=== PATIENT | male | born 1970 | race Caucasian/White ===

== ENCOUNTER 2019-11-15 01:32 | Day surgery (SDC) | payer OTHER, SELFPAY ==
[2019-11-09 14:40] VITALS: BMI 25.8
[2019-11-15 07:37] VITALS: BMI 24.9
[2019-11-15 07:41] VITALS: BP 119/77; PULSE 80; RESP 18; TEMP 36.1; O2SAT 100
[2019-11-15] MEDS: LACTATED RINGERS 1,000 ML 150 ML IV CONT (07:50)
--- NOTE | 2019-11-15 07:53 | WPDANESEPPF ---
Anes - Initial Pre Proc Eval Procedure: Operation Date: 11/15/19 08:30 Proposed Procedures p Screening Colonoscopy - Greg Obrien MD Date/Time: 11/15/19 07:53 Surgeon: Greg Obrien MD Pre Op Diagnosis: Neoplasm Screening Patient Data Age: 49 Gender: M Height: 5 ft 11 in Weight: 81.1 kg Last Vital Signs Temp 36.1 C L 11/15/19 07:41 Pulse 80 11/15/19 07:41 Resp 18 11/15/19 07:41 BP 119/77 11/15/19 07:41 Pulse Ox 100 11/15/19 07:41 Allergies Allergy/AdvReac Type Severity Reaction Status Date / Time No Known Allergies Allergy Unverified 11/15/19 07:35 Home Medications Medication Instructions Recorded Confirmed Type aripiprazole 15 mg tablet 15 mg PO DAILY 10/12/19 11/09/19 History cholecalciferol (vitamin D3) 1,250 50,000 unit PO WEEKLY #8 cap 10/12/19 11/09/19 Rx mcg (50,000 unit) capsule fluoxetine 10 mg capsule 10 mg PO DAILY 10/12/19 11/09/19 History Patient hx anesthesia problems: none Family hx anesthesia problems: none PMFSH Past Medical History Medical History Depression Gout Surgical History Surgical History H/O eye surgery lower eye orbital 2004 H/O hernia repair Family History Family History Grandparent H/O aortic valve replacement H/O aneurysm Malignant neoplasm of prostate Diabetes mellitus Social History Social History Smoking packs per day: 0.5 Smoking cigarettes per day: 10.0 Smoking status: Former smoker Tobacco type: cigarettes Alcohol intake: current Anes - Eval Final PreProcedure Day of Procedure 11/15/19 07:53 Patient weight: normal Heart: regular rate and rhythm Lungs: clear to auscultation Airway: Mallampati scale class II Neurological: alert and oriented Last oral intake: >/= 8 hours ASA classification: II Emergent: no Anesthetic plan: proceed Anesthesia type and monitoring: general GIVS and standard monitoring Informed Consent: The patient's anesthetic plan and its attendant risks and benefits were discussed with the patient/family/POA. Questions were solicited and answers provided to the satisfaction of the patient/family/POA.
--- NOTE | 2019-11-15 08:00 | P.HP_ITS ---
History of Present Illness History of Present Illness Consent: Risks, benefits, and alternatives have been discussed and questions answered. Patient agrees to proceed with procedure. Chief complaint: Neoplasm Screening Narrative: Loco Son is a 49 year old W male referred for his 1st screening colonoscopy. Patient is asymptomatic and there is no family history of colon polyps or colon cancer. [facility] Past Medical History Medical History Depression Gout Surgical History Surgical History H/O eye surgery lower eye orbital 2004 H/O hernia repair Family History Family History Grandparent H/O aortic valve replacement H/O aneurysm Malignant neoplasm of prostate Diabetes mellitus Social History Social History Smoking packs per day: 0.5 Smoking cigarettes per day: 10.0 Smoking status: Former smoker Tobacco type: cigarettes Alcohol intake: current Meds Home Medications and Allergies Home Medications Medication Instructions Recorded Confirmed Type aripiprazole 15 mg tablet 15 mg PO DAILY 10/12/19 11/09/19 History cholecalciferol (vitamin D3) 1,250 50,000 unit PO WEEKLY #8 cap 10/12/19 11/09/19 Rx mcg (50,000 unit) capsule fluoxetine 10 mg capsule 10 mg PO DAILY 10/12/19 11/09/19 History Allergies Allergy/AdvReac Type Severity Reaction Status Date / Time No Known Allergies Allergy Unverified 11/15/19 07:35 Vital Signs Vital Signs - 24 hr 11/15/19 07:41 Temperature 36.1 C L Pulse Rate 80 Respiratory Rate 18 Blood Pressure 119/77 Pulse Oximetry 100 Exam Const: Orientation/consciousness: patient oriented x3 Resp: Auscultation: clear to auscultation bilaterally Cardio: Rate: regular rate Rhythm: regular rhythm Heart sounds: no murmurs GI: GI Palp: Yes Soft to palpation, No Tenderness to palpation present (GI), Yes No hepatosplenomegaly present and No Palpable mass present Auscultation: normal bowel sounds Neuro: General: patient oriented x3 and no focal motor deficits Extrem: General: no pedal edema Assessment and Plan Additional Plan Screening colonoscopy in average risk patient
[2019-11-15 08:56] VITALS: BP 85/52; PULSE 79; RESP 20; O2SAT 93
[2019-11-15 09:06] VITALS: BP 89/49; PULSE 73; RESP 16; O2SAT 99
[2019-11-15 09:16] VITALS: BP 90/59; PULSE 64; RESP 17; O2SAT 100
[2019-11-15 09:26] VITALS: BP 99/58; PULSE 65; RESP 20; O2SAT 100
== END 2019-11-15 09:39 | disposition home or self-care (01) ==
PROVIDERS: PCP Internal Medicine; Visit Provider Internal Medicine Gastroenterology
PROC: 0DJD8ZZ Inspection of Lower Intestinal Tract, Via Natural or Artificial Opening Endoscopic (ICD-10-PCS; CPT 45378; principal; 2019-11-15 08:30)
DX: Z12.11 Encounter for screening for malignant neoplasm of colon (principal); K51.40 Inflammatory polyps of colon without complications; K57.30 Diverticulosis of large intestine without perforation or abscess without bleeding; M10.9 Gout, unspecified; F32.9 Major depressive disorder, single episode, unspecified; Z87.891 Personal history of nicotine dependence
CPT/HCPCS: 45385; 88305; J2704; J7120

== ENCOUNTER 2021-01-03 17:22 | Outpatient (CLI) | payer OTHER, SELFPAY | END 2021-01-03 17:23 | disposition home or self-care (01) | LOC: ANHCOVIDVC 17:22 | PROVIDERS: PCP Internal Medicine | DX: Z23 Encounter for immunization (principal) | CPT/HCPCS: 0001A; 91300 ==

== ENCOUNTER 2021-01-24 17:16 | Outpatient (CLI) | payer OTHER, SELFPAY | END 2021-01-24 17:17 | disposition home or self-care (01) | LOC: ANHCOVIDVC 17:16 | PROVIDERS: PCP Internal Medicine | DX: Z23 Encounter for immunization (principal) | CPT/HCPCS: 0002A; 91300 ==

== ENCOUNTER 2023-11-27 09:35 | Outpatient (CLI) | payer OTHER, SELFPAY ==
[2023-11-27 19:26] LABS: Alanine Aminotransferase 21 U/L (6-50); Albumin Level 4.4 g/dL (3.5-5.1); Alkaline Phosphatase 66 U/L (38-126); Anion Gap 7 mmol/L (8-16); Aspartate Amino Transferase 25 U/L (17-59); Bilirubin,Total 0.7 mg/dL (0.2-1.3); Blood Urea Nitrogen 15 mg/dL (9-20); Calcium 9.3 mg/dL (8.4-10.2); Carbon Dioxide 31 mmol/L (22-30); Chloride 101 mmol/L (98-107); Cholesterol 227 mg/dL (0-200); Estimated Glomerular Filt Rate > 60; Glucose 108 mg/dL (65-110); HDL Direct 53 mg/dL; Potassium 4.6 mmol/L (3.4-5.0); Sodium 139 mmol/L (137-145); Triglycerides 123 mg/dL (<150)
[2023-11-27 19:37] LABS: LDL Cholesterol Direct 134 mg/dL
[2023-11-27 19:39] LABS: Basophils Absolute Auto 0.1 K/mm3 (0.0-0.1); Eosinophils Absolute Auto 0.1 K/mm3 (0-0.3); Eosinophils Percent Auto 0.9 % (0-4.4); Hematocrit 45.2 % (42.0-52.0); Hemoglobin 14.9 g/dL (14.0-18.0); Immature Granulocyte Absolute 0.01 K/mm3 (0.00-0.031); Immature Granulocyte Percent A 0.1 % (0-0.5); Lymphocytes Absolute Auto 2.23 K/mm3 (0.9-3.2); Lymphocytes Percent Auto 32.6 % (18.3-44.2); Mean Corpuscular Hemoglobin 30.5 pg (26-34); Mean Corpuscular Volume 92.4 fl (80-100); Mean Platelet Volume 10.1 fl (7.4-10.4); Monocytes Absolute Auto 0.7 K/mm3 (0.1-0.6); Monocytes Percent Auto 10.7 % (2.6-8.5); Neutrophils Absolute Auto 3.8 K/mm3 (1.3-6.7); Neutrophils Percent Auto 54.7 % (45.5-73.1); Platelet Count Result 276 k/mm3 (150-375); Red Blood Count 4.89 M/mm3 (4.6-6.20); Red Cell Distribution Width 12.2 % (11.5-14.5); White Blood Count 6.9 K/mm3 (4.5-10.0)
[2023-11-27 20:14] LABS: Prostate Specific Antigen 0.9 ng/mL (< OR = 4.0); Thyroid Stimulating Hormone < 0.015 uIU/mL (0.465-4.680)
[2023-11-27 20:30] LABS: Vitamin D 25 Hydroxy 72.1 ng/mL
[2023-11-27 22:21] LABS: Hemoglobin A1C 5.5 % (<5.7)
== END 2023-11-27 09:36 | disposition home or self-care (01) ==
LOC: ANHGOSHLAB 09:37
PROVIDERS: PCP Internal Medicine; Visit Provider Clinical Nurse Specialist
DX: Z13.228 Encounter for screening for other metabolic disorders (principal); Z13.220 Encounter for screening for lipoid disorders; K21.9 Gastro-esophageal reflux disease without esophagitis; E55.9 Vitamin D deficiency, unspecified; Z80.42 Family history of malignant neoplasm of prostate; R73.9 Hyperglycemia, unspecified
CPT/HCPCS: 36415; 80053; 80061; 82306; 83036; 84153; 84443; 85025; G0103

== ENCOUNTER 2023-11-28 14:22 | Outpatient (CLI) | payer OTHER, SELFPAY ==
[2023-11-28 16:51] LABS: Free T4 Free Thyroxine 0.91 ng/mL (0.78-2.19)
[2023-11-28 17:03] LABS: Thyroid Stimulating Hormone < 0.015 uIU/mL (0.465-4.680)
== END 2023-11-28 14:23 | disposition home or self-care (01) ==
LOC: ANHGOSHLAB 14:24
PROVIDERS: PCP Internal Medicine; Visit Provider Clinical Nurse Specialist
DX: R94.6 Abnormal results of thyroid function studies (principal)
CPT/HCPCS: 36415; 84439; 84443

== ENCOUNTER 2023-12-19 11:53 | Outpatient (CLI) | payer OTHER, SELFPAY ==
[2023-12-19 19:26] LABS: Thyroid Stimulating Hormone Reflex 0.999 uIU/mL (0.465-4.68)
== END 2023-12-19 11:54 | disposition home or self-care (01) ==
LOC: ANHGOSHLAB 11:55
PROVIDERS: PCP Clinical Nurse Specialist; Visit Provider Clinical Nurse Specialist
DX: R79.89 Other specified abnormal findings of blood chemistry (principal)
CPT/HCPCS: 36415; 84443